=== PATIENT | male | born 1960 | race African-American/Black ===

== ENCOUNTER 2023-04-30 12:18 | Emergency (ER) | payer BC ==
[~2023-04-30] VITALS: Ht 175.3 cm; Wt 91.0 kg
[2023-04-30 12:27] VITALS: TEMP 98.4; O2SAT 98
[2023-04-30] MEDS ORDERED: KETOROLAC 30MG/ML VIAL IM ONE (14:00)
[2023-04-30] MEDS ORDERED: CYCLOBENZAPRINE 10MG TABLET PO ONE (14:00)
[2023-04-30] MEDS ORDERED: CYCL10TA21 MT (15:40)
[2023-04-30 15:50] VITALS: BP 112/89; PULSE 95; RESP 16
== END 2023-04-30 16:39 | disposition home or self-care (01) ==
LOC: ER 12:18
DX: M79.18 Myalgia, other site (principal); I10 Essential (primary) hypertension
CPT/HCPCS: 93971; 96372; 99285; J1885; Z7610